=== PATIENT | male | born 1995 | race Two or more races ===

== ENCOUNTER 2023-06-13 13:38 | Inpatient (IN) | payer OTHER ==
[~2023-06-13] VITALS: Ht 177.8 cm; Wt 123.7 kg
[2023-06-13] MEDS: LORazepam 2 MG/ML VIAL IM ONE (15:04)
[2023-06-13] MEDS: HALOPERIDOL LACTATE 5 MG/ML VIAL IM ONE (15:05)
[2023-06-13] MEDS: DiphenhydrAMINE HCL 50 MG/ML VIAL IM ONE (15:06)
[2023-06-13 15:31] LABS: BASOPHILS % (AUTO) 0.7 % (0.0-2.0); EOSINOPHILS % (AUTO) 3.3 % (1.0-6.0); HEMATOCRIT 42.2 % (41-53); HEMOGLOBIN 13.9 g/dL (13.5-17.5); MEAN CORPUSCULAR VOLUME 97 fL (80-100); MONOCYTES # (AUTO) 0.7 K/uL (0.1-1.0); MONOCYTES % (AUTO) 9.4 % (2.0-9.0); NEUTROPHILS # (AUTO) 4.1 K/uL (1.8-7.7); NEUTROPHILS % (AUTO) 57.6 % (40.0-70.0); PLATELET COUNT (AUTO) 209 K/uL (150-450); RED BLOOD CELL COUNT(AUTO) 4.35 MIL/uL (4.50-5.90); RED CELL DISTRIBUTION WIDTH 13.2 % (11.5-14.5); WHITE BLOOD COUNT (AUTO) 7.1 K/uL (4.5-11.0)
[2023-06-13 15:42] LABS: ANION GAP 9 mmol/L (8-16); CALCIUM, TOTAL 9.6 mg/dL (8.8-10.5); CARBON DIOXIDE 29 mmol/L (22-29); CHLORIDE 102 mmol/L (98-107); CREATININE 1.25 mg/dL (0.60-1.30); GLOMERULAR FILTR. RATE CALC > 60 mL/min (>60); GLUCOSE,RANDOM 90 mg/dL (70-110); POTASSIUM 4.2 mmol/L (3.5-5.1); SODIUM SERUM 140 mmol/L (136-145); UREA NITROGEN, BLOOD 10 mg/dL (7-18)
[2023-06-13 15:48] LABS: ALANINE AMINOTRANSFERASE 59 U/L (12-78); ALBUMIN 4.5 g/dL (3.4-5.0); ALKALINE PHOSPHATASE 78 U/L (46-116); ASPARTATE AMINOTRANSFERASE 63 U/L (15-37); BILIRUBIN,TOTAL 0.4 mg/dL (0.1-1.0); TOTAL PROTEIN, SERUM 7.5 g/dL (6.4-8.2)
[2023-06-13 16:03] LABS: COVID AG,FIA SOURCE NASAL SWAB
[2023-06-13 16:21] LABS: SARS-COV2 (COVID) ANTIGEN,FIA Negative (Negative)
[2023-06-13 16:23] LABS: ALCOHOL, BLOOD (SERUM) < 3 mg/dL (0-10)
[2023-06-13 22:00] VITALS: BP 152/90; PULSE 76; RESP 19; TEMP 97.1
[2023-06-14] MEDS: OLANZapine 10 MG RAPDIS TABLET PO SCH (09:00)
[2023-06-14] MEDS: ClonazePAM 0.5 MG TABLET PO SCH (09:07)
[2023-06-14] MEDS: LORazepam 2 MG/ML VIAL IM PRN (09:15)
[2023-06-14] MEDS: HALOPERIDOL LACTATE 5 MG/ML VIAL IM PRN (09:20)
[2023-06-14] MEDS: BENZTROPINE MESYLATE 0.5 MG TABLET PO SCH (09:23)
[2023-06-14] MEDS: OLANZapine 10 MG RAPDIS TABLET PO ONE (09:25)
[2023-06-14 09:31] VITALS: BP 138/83; PULSE 75; RESP 17; TEMP 98.1
[2023-06-14] MEDS: ALBUTEROL SULFATE HFA 90 MCG/PUFF 8 GM INHALER IH PRN (10:32)
[2023-06-14] MEDS ORDERED: ACETAMINOPHEN 325 MG TABLET PO PRN (19:30)
[2023-06-14] MEDS ORDERED: MAG HYDROX/ALUMINUM HYD/SIMETH ES 30 ML SUSPENSION UDCUP PO PRN (19:30)
[2023-06-14] MEDS ORDERED: GuaiFENesin/D-METHORPHAN [SUGAR-FREE] 200-20MG/10 ML SYRUP UDCUP PO PRN (19:30)
[2023-06-14] MEDS ORDERED: NICOTINE 14 MG/24 HOUR PATCH TD PRN (19:30)
[2023-06-14] MEDS ORDERED: IBUPROFEN 400 MG TABLET PO PRN (19:30)
[2023-06-14] MEDS ORDERED: CloNIDine HCL 0.1 MG TABLET PO PRN (19:30)
[2023-06-14] MEDS ORDERED: MAGNESIUM HYDROXIDE SUSPENSION 30 ML UDCUP PO PRN (19:30)
[2023-06-14] MEDS ORDERED: LOPERAMIDE HCL 2 MG CAPSULE PO PRN (19:30)
[2023-06-14] MEDS ORDERED: DOCUSATE SODIUM 100 MG CAPSULE PO PRN (19:30)
[2023-06-14] MEDS ORDERED: ONDANSETRON HCL 4 MG TABLET PO PRN (19:30)
[2023-06-14] MEDS ORDERED: PETROLATUM,WHITE 28 GM JELLY TP PRN (19:30)
[2023-06-14] MEDS ORDERED: ALBUTEROL SULFATE HFA 90 MCG/PUFF 8 GM INHALER IH PRN (19:30)
[2023-06-14 20:49] VITALS: RESP 18
[2023-06-15 08:14] LABS: CHOL/HDL RATIO 4.1 (4.2-7.3); THYROID STIMULATING HORMONE 0.68 uIU/mL (0.36-3.74)
[2023-06-15 08:29] VITALS: RESP 19
[2023-06-15] MEDS: *NON-FORMULARY MED [ENTER DRUG, DOSE, FREQ IN COMMENTS] CLINICAL ONE (16:41)
[2023-06-15] MEDS: OLANZAPINE PAMOATE IM SCH (18:40)
[2023-06-15] MEDS: MIDAZOLAM HCL 5 MG/ML VIAL IM ONE (18:43)
[2023-06-15 20:35] VITALS: RESP 18
[2023-06-16 12:52] VITALS: RESP 18
[2023-06-16 20:42] VITALS: RESP 18
[2023-06-17] MEDS ORDERED: PETROLATUM,WHITE 28 GM JELLY TP PRN (09:00)
[2023-06-17 09:06] VITALS: BP 126/78; PULSE 78; RESP 17; TEMP 98
[2023-06-17] MEDS: ZIPRASIDONE HCL 40 MG CAPSULE PO SCH (16:25)
[2023-06-17] MEDS: ZOLPIDEM TARTRATE 10 MG TABLET PO PRN (20:35)
[2023-06-17] MEDS: LORazepam 2 MG TABLET PO PRN (20:35)
[2023-06-18 01:13] VITALS: RESP 18
[2023-06-18] MEDS: HALOPERIDOL 5 MG TABLET PO PRN (08:20)
[2023-06-18 11:56] VITALS: BP 118/60; PULSE 80; RESP 17; TEMP 97.8
[2023-06-18] MEDS: ZIPRASIDONE HCL 60 MG CAPSULE PO SCH (17:13)
[2023-06-18 21:40] VITALS: BP 121/54; PULSE 74; RESP 18; TEMP 97.5; O2SAT 96
[2023-06-19 10:45] VITALS: BP 127/73; PULSE 74; RESP 18; TEMP 98; O2SAT 99
[2023-06-19] MEDS ORDERED: INFLUENZA VIRUS VACCINE QVS 2023-24 (6MO+)/PF 60 MCG/0.5 ML SYRINGE IM. ONE (10:45)
[2023-06-19] MEDS ORDERED: DiphenhydrAMINE HCL 50 MG/ML VIAL ONE (15:05)
[2023-06-19] MEDS ORDERED: HALOPERIDOL LACTATE 5 MG/ML VIAL ONE (15:05)
[2023-06-19] MEDS: DiphenhydrAMINE HCL 50 MG/ML VIAL IM ONE (15:11)
[2023-06-19] MEDS: HALOPERIDOL LACTATE 5 MG/ML VIAL IM ONE (15:12)
[2023-06-19] MEDS: ZIPRASIDONE HCL 80 MG CAPSULE PO SCH (16:52)
[2023-06-19 20:29] VITALS: BP 146/82; PULSE 82; RESP 20; TEMP 97.9; O2SAT 100
[2023-06-20 08:24] VITALS: BP 157/66; PULSE 73; RESP 18; TEMP 97.8; O2SAT 100
[2023-06-20 20:10] VITALS: BP 136/81; PULSE 84; RESP 8; TEMP 97.8
[2023-06-21] MEDS ORDERED: ZIPR80CA9 PO (07:35)
[2023-06-21] MEDS ORDERED: CLON-592 PO (07:36)
[2023-06-21] MEDS ORDERED: BENZ0.5T6 PO (07:36)
== END 2023-06-21 11:40 | DRG 885 ==
LOC: EMS 13:40 → 3EC 20:51 → B3A 06-16 20:53
PROVIDERS: ADMIT Psychiatry & Neurology Child & Adolescent Psychiatry; ATTEND Psychiatry & Neurology Child & Adolescent Psychiatry
PROC: GZ56ZZZ Individual Psychotherapy, Supportive (ICD-10-PCS; principal; 2023-06-16)
DX: F25.0 Schizoaffective disorder, bipolar type (principal); E66.9 Obesity, unspecified; F41.9 Anxiety disorder, unspecified; G47.00 Insomnia, unspecified; Z20.822 Contact with and (suspected) exposure to COVID-19; R74.01 Elevation of levels of liver transaminase levels; F12.19 Cannabis abuse with unspecified cannabis-induced disorder; Z81.4 Family history of other substance abuse and dependence; Z81.1 Family history of alcohol abuse and dependence; Z81.8 Family history of other mental and behavioral disorders; Z68.39 Body mass index [BMI] 39.0-39.9, adult; Z78.1 Physical restraint status; Z88.1 Allergy status to other antibiotic agents; Z91.030 Bee allergy status; Z91.048 Other nonmedicinal substance allergy status
CPT/HCPCS: 80053; 80061; 83036; 84443; 85025; 86592; 99291; G0480; J1200; J1630; J2060; J2250; J3535; Q9967